=== PATIENT | female | born 1985 | race Caucasian/White ===

== ENCOUNTER 2021-03-27 13:07 | Emergency (ER) | payer OTHER ==
[2021-03-27 13:21] VITALS: BP 135/78; PULSE 89; TEMP 98.2; BMI 23.9
[2021-03-27] MEDS ORDERED: LIDOCAINE HCL 1%, 10 MG/ML (20ML VIAL) ONE (13:49)
== END 2021-03-27 14:38 | disposition home or self-care (01) ==
LOC: JERFT 13:07 → JER 13:07 → JERFT 14:38
PROC: 0H96XZZ Drainage of Back Skin, External Approach (ICD-10-PCS; principal; 2021-03-27)
DX: L72.3 Sebaceous cyst (principal)
CPT/HCPCS: 87070; 87186; 87205; 99282-25